=== PATIENT | male | born 1975 | race Hispanic/Latino ===

== ENCOUNTER 2021-08-05 09:52 | Emergency (ER) | payer SELFPAY ==
[2021-08-05] MEDS ORDERED: Acetaminophen 500 MG TAB ONE (10:56)
[2021-08-05] MEDS ORDERED: Ketorolac Tromethamine 30 MG/ML VIAL ONE (11:20)
== END 2021-08-05 12:40 | disposition home or self-care (01) ==
LOC: CSHERS 09:52
DX: S80.12XA Contusion of left lower leg, initial encounter (principal); W50.1XXA Accidental kick by another person, initial encounter
CPT/HCPCS: 96372; J1885